=== PATIENT | male | born 1940 | race Caucasian/White ===

== ENCOUNTER 2022-11-28 06:34 | Emergency (ER) | payer MEDICARE, OTHER ==
--- NOTE | 2022-11-28 07:45 | ED Physician Documentation ---
PD HPI URI - Stated complaint Stated Complaint: C+, SOA - Chief complaint Chief Complaint: Resp - History obtained from History obtained from: Patient - History of Present Illness Timing - onset: How many days ago (4) Timing duration: Days (4) Timing details: Gradual onset, Still present Associated symptoms: Fever (3-4 days ago), Nasal congestion, Dry cough, Dyspnea. No: Sore throat, NVD Contributing factors: Sick contact. No: Immunocompromised, COPD / asthma Improves by: Rest Worsened by: Activity Similar symptoms before: Has not had sx before Recently seen: Not recently seen Review of Systems Constitutional: reports: Fever, Chills, Myalgias Nose: reports: Congestion Throat: denies: Sore throat Cardiac: denies: Chest pain / pressure Respiratory: reports: Dyspnea, Cough, Wheezing GI: denies: Abdominal Pain, Nausea, Vomiting, Diarrhea Neurologic: reports: Generalized weakness. denies: Near syncope PD PAST MEDICAL HISTORY - Past Medical History Past Medical History: Yes Cardiovascular: [place] Respiratory: None Neuro: None Endocrine/Autoimmune: None GI: GERD : None HEENT: Macular degeneration Psych: None Musculoskeletal: Osteoarthritis Other Past Medical History: multiple myeloma - Past Surgical History Past Surgical History: Yes Ortho: Shoulder arthroplasty, Arthroscopic surgery Cardiovascular: Coronary stent, Angioplasty - Present Medications Home Medications: Ambulatory Orders Medication Instructions Recorded Confirmed Acyclovir 400 mg PO BID 11/28/22 11/28/22 Albuterol Sulf [Ventolin Hfa 2 - 3 puffs INH QID #1 each 11/28/22 Inhaler] Aspirin EC [Ecotrin] 81 mg PO DAILY 11/28/22 11/28/22 Atorvastatin Calcium [Lipitor] 80 mg PO HS 11/28/22 11/28/22 Ferrous Sulfate [Slow Fe] 142 mg PO DAILY 11/28/22 11/28/22 Fluoxetine HCl [Prozac] 20 mg PO DAILY 11/28/22 11/28/22 Lenalidomide [Revlimid] 0 mg PO 11/28/22 Mv-Mn/Om3/Dha/Epa/Fish/Lut/John 1 each PO DAILY 11/28/22 11/28/22 [Ocuvite Adult 50 Plus Softgel] Omeprazole Magnesium 20 mg PO DAILY 11/28/22 11/28/22 Phosphorus [Phospha 250 Neutral] 250 mg ORAL BID 11/28/22 11/28/22 SULFAM/TRIM 800/160 Prepack 2 1 tab ORAL BID 11/28/22 11/28/22 [BACTRIM DS 800/160 Prepack 2] dexAMETHasone [Decadron] 3 tab PO Q7D 11/28/22 11/28/22 - Allergies Allergies/Adverse Reactions: Allergies Allergy/AdvReac Type Severity Reaction Status Date / Time Penicillins Allergy Rash Verified 11/28/22 06:41 - Social History Does the pt smoke?: No Smoking Status: Never smoker Does the pt drink ETOH?: Yes ETOH Use: Wine Does the pt have substance abuse?: No - Immunizations Immunizations are current?: Yes PD ED PE NORMAL - Vitals Vital signs reviewed: Yes - General General: Alert and oriented X 3, No acute distress, Well developed/nourished - Cardiac Cardiac: RRR, No murmur - Respiratory Respiratory: No respiratory distress. No: Clear bilaterally (wheezing diffusely. No coarse sounds. ) Results - Vitals Vitals: Vital Signs - 24 hr 11/28/22 11/28/22 11/28/22 06:44 08:20 08:44 Temperature 36.6 C Heart Rate 83 93 69 Respiratory 20 18 16 Rate Blood Pressure 166/78 H 161/80 H O2 Saturation 98 96 11/28/22 11/28/22 11/28/22 09:02 09:39 09:55 Temperature 36.9 C Heart Rate 92 68 88 Respiratory 20 18 18 Rate Blood Pressure 142/72 H 135/81 H O2 Saturation 97 100 Oxygen O2 Source Room air PD Medical Decision Making - ED course Complexity details: reviewed results, considered differential (COVID, with wheeezing. No history of asthma. Improved reasonably with albuterol neb. ), d/w patient Departure - Departure Disposition: 01 Home, Self Care Clinical Impression: COVID-19, Dyspnea, Wheezing Condition: Stable Record reviewed to determine appropriate education?: Yes Instructions: ED URI Viral W Wheezing Follow-Up: DARIO VU DO [Primary Care Provider] - Prescriptions: Albuterol Sulf [Ventolin Hfa Inhaler] 2 - 3 puffs INH QID #1 each Comments: Stay well-hydrated. Tylenol if needed for fevers or pains. Use the albuterol inhaler 2 to 3 puffs 4 times daily regularly for the next week and up to every 2 hours if needed for wheeziness as needed. Use your dexamethasone 6 mg orally tomorrow and then 4 mg daily for 2 more days and 2 mg daily for 2 more days. At that point you can do your normal dosing the following Tuesday. Return to the ER if you have increased trouble breathing/wheezing. Otherwise I would anticipate improvement in the next day or 2 with the above steroid dosing and inhaler. I sent your inhaler prescription to [facility] in [place]. Your chest x-ray is clear at this point without any signs of pneumonia. Your oxygenation is good at 97% on room air. Forms: PCP List Discharge Date/Time: 11/28/22 09:56
--- NOTE | 2022-11-28 08:09 | XRAY Report ---
PROCEDURE: Chest 2 View X-Ray INDICATIONS: SOA/cough TECHNIQUE: 2 views of the chest were acquired. COMPARISON: None. FINDINGS: Surgical changes and devices: None. Lungs and pleura: No pleural effusions or pneumothorax. Lungs are clear. Mediastinum: Mediastinal contours appear normal. Heart size is normal. Artifact is calcified, ind icating atherosclerosis. Bones and chest wall: No suspicious bony lesions. Overlying soft tissues appear unremarkable. IMPRESSION: No acute cardiopulmonary process. Reviewed by: Ramya Montalvo MD on 11/28/2022 8:08 AM PDT Approved by: Ramya Montalvo MD on 11/28/2022 8:08 AM PDT Station ID: [id number]
[2022-11-28] MEDS ORDERED: BENZONATATE 100 MG CAPSULE PO STA (08:12)
[2022-11-28] MEDS ORDERED: ALBUTEROL NEB 2.5 MG/3 ML INH STA (08:12)
[2022-11-28] MEDS ORDERED: dexAMETHasone 4 MG TABLET PO STA (09:12)
[2022-11-28] MEDS ORDERED: IPRATROPIUM/ALBUTEROL 3 ML NEB INH STA (09:12)
[2022-11-28 10:01] VITALS: BP 135/81; O2SAT 100
== END 2022-11-28 09:56 | disposition home or self-care (01) ==
LOC: ED 06:34
DX: U07.1 COVID-19 (principal); R06.2 Wheezing; R06.00 Dyspnea, unspecified; Z79.899 Other long term (current) drug therapy; Z79.82 Long term (current) use of aspirin
CPT/HCPCS: 71046; 94640; 99283; 99284; A9270; J8540

== ENCOUNTER 2023-07-01 12:11 | Emergency (ER) | payer MEDICARE, OTHER ==
[2023-07-01 12:44] LABS: BASOPHILS # (AUTO) 0.1 10^3/uL (0.0-0.1); EOSINOPHILS # (AUTO) 0.2 10^3/uL (0.0-0.7); HCT - HEMATOCRIT 37.3 % (42.0-52.0); LYMPHOCYTES # (AUTO) 5.2 10^3/uL (1.5-3.5); MEAN CORPUSCULAR HEMOGLOBIN 33.2 pg (27.0-31.0); MEAN CORPUSCULAR HGB CONC 32.2 g/dL (32.0-36.0); MEAN CORPUSCULAR VOLUME 103.3 fL (80.0-94.0); MEAN PLATELET VOLUME 10.3 fL (7.4-11.4); MONOCYTES # (AUTO) 1.6 10^3/uL (0.0-1.0); MONOCYTES % (AUTO) 13.9 %; NEUTROPHILS # (AUTO) 4.6 10^3/uL (1.5-6.6); NEUTROPHILS % (AUTO) 38.8 %; PLT - PLATELET COUNT 268 10^3/uL (130-450); RED BLOOD COUNT 3.61 10^6/uL (4.70-6.10); RED CELL DISTRIBUTION WIDTH 14.4 % (12.0-15.0); WHITE BLOOD COUNT 11.8 x10^3/uL (4.8-10.8)
[2023-07-01 12:48] LABS: SLIDE REVIEW? Indicated
[2023-07-01 12:58] LABS: ALBUMIN 3.7 g/dL (3.2-5.5); ALBUMIN/GLOBULIN RATIO 1.9 (1.0-2.2); BILIRUBIN,TOTAL 0.4 mg/dL (0.2-1.0); CALCIUM 9.7 mg/dL (8.5-10.3); CREATININE 1.3 mg/dL (0.6-1.3); TOTAL PROTEIN 5.6 g/dL (6.4-8.9)
[2023-07-01 12:59] LABS: PLATELET ESTIMATE, MANUAL NORMAL (130-450,000) (NORMAL); PLATELET MORPHOLOGY NORMAL APPEARANCE (NORMAL); RBC MORPHOLOGY (MULTIPLE) NORMAL APPEARANCE (NORMAL)
[2023-07-01 13:05] LABS: TROPONIN I HIGH SENSITIVITY 6.9 ng/L (2.3-19.7)
--- NOTE | 2023-07-01 13:47 | XRAY Report ---
PROCEDURE: Chest 1V INDICATIONS: Chest pain TECHNIQUE: One view of the chest was acquired. COMPARISON: 11/28/2022. FINDINGS: Surgical changes and devices: None. Lungs and pleura: No pleural effusions or pneumothorax. Lungs are clear. Mediastinum: Mediastinal contours appear normal. Heart size is normal. Bones and chest wall: No suspicious bony lesions. Overlying soft tissues appear unremarkable. IMPRESSION: No acute cardiopulmonary process. Reviewed by: Efe Trammell MD on 07/01/2023 1:45 PM PDT Approved by: Efe Trammell MD on 07/01/2023 1:45 PM PDT Station ID: [id number]
--- NOTE | 2023-07-01 13:52 | ED Physician Documentation ---
PD HPI CHEST PAIN - Stated complaint Stated Complaint: CHEST PX,SOA - Chief complaint Chief Complaint: Cardiac - History obtained from History obtained from: Patient - Additional information Additional information: 83-year-old gentleman with history of coronary disease with [address], had an [place] in 2001. He had 3 days of constant sharp chest pain located under the left clavicle. He had a cough a couple of weeks ago and wonders if this may be heartburn as he made some homemade chili. It has been unrelenting but not severe for the last 2 to 3 days. Not intermittent. Nonexertional. He denies pedal edema, calf pain. The cough is much worse than it was a couple of weeks ago and seems to be resolving. No fevers. PD PAST MEDICAL HISTORY - Past Medical History Past Medical History: Yes Cardiovascular: [place] Respiratory: None Neuro: None Endocrine/Autoimmune: None GI: GERD : None HEENT: Macular degeneration Psych: None Musculoskeletal: Osteoarthritis - Past Surgical History Past Surgical History: Yes Ortho: Shoulder arthroplasty, Arthroscopic surgery Cardiovascular: Coronary stent, Angioplasty - Present Medications Home Medications: Ambulatory Orders Medication Instructions Recorded Confirmed Acyclovir 400 mg PO BID 11/28/22 11/28/22 Albuterol Sulf [Ventolin Hfa 2 - 3 puffs INH QID #1 each 11/28/22 Inhaler] Aspirin EC [Ecotrin] 81 mg PO DAILY 11/28/22 11/28/22 Atorvastatin Calcium [Lipitor] 80 mg PO HS 11/28/22 11/28/22 Ferrous Sulfate [Slow Fe] 142 mg PO DAILY 11/28/22 11/28/22 Fluoxetine HCl [Prozac] 20 mg PO DAILY 11/28/22 11/28/22 Lenalidomide [Revlimid] 0 mg PO 11/28/22 Mv-Mn/Om3/Dha/Epa/Fish/Lut/John 1 each PO DAILY 11/28/22 11/28/22 [Ocuvite Adult 50 Plus Softgel] Omeprazole Magnesium 20 mg PO DAILY 11/28/22 11/28/22 Phosphorus [Phospha 250 Neutral] 250 mg ORAL BID 11/28/22 11/28/22 SULFAM/TRIM 800/160 Prepack 2 1 tab ORAL BID 11/28/22 11/28/22 [BACTRIM DS 800/160 Prepack 2] dexAMETHasone [Decadron] 3 tab PO Q7D 11/28/22 11/28/22 - Allergies Allergies/Adverse Reactions: Allergies Allergy/AdvReac Type Severity Reaction Status Date / Time Penicillins Allergy Rash Verified 07/01/23 12:15 - Social History Does the pt smoke?: No Smoking Status: Never smoker Does the pt drink ETOH?: Yes Does the pt have substance abuse?: No - Immunizations Immunizations are current?: Yes PD ED PE NORMAL - Vitals Vital signs reviewed: Yes - General General: Alert and oriented X 3, No acute distress - HEENT HEENT: PERRL, EOMI - Neck Neck: Supple, no meningeal sign, No bony TTP - Cardiac Cardiac: RRR, No murmur - Respiratory Respiratory: No respiratory distress, Clear bilaterally - Abdomen Abdomen: Non tender - Extremities Extremities: No edema, No calf tenderness / cord - Neuro Neuro: Alert and oriented X 3, Normal speech Results - Vitals Vitals: Vital Signs - 24 hr 07/01/23 12:15 Temperature 36.8 C Heart Rate 78 Respiratory 16 Rate Blood Pressure 130/53 L O2 Saturation 97 Oxygen O2 Source Room air - EKG (time done) 1221 EKG releavant findings:: EKG personally interpreted by author of this note. Relevant findings are: Rate: Rate (enter#) (74) Rhythm: NSR (w pac) [place]: Normal Intervals: Normal [place] QRS: Normal Ischemia: Normal ST segments - Labs Labs: Laboratory Tests 07/01/23 07/01/23 12:39 12:39 WBC 11.8 H RBC 3.61 L Hgb 12.0 L Hct 37.3 L MCV 103.3 H MCH 33.2 H MCHC 32.2 RDW 14.4 Plt Count 268 MPV 10.3 Neut # (Auto) 4.6 Lymph # (Auto) 5.2 H [place] # (Auto) 1.6 H Eos # (Auto) 0.2 Baso # (Auto) 0.1 Absolute Nucleated RBC 0.00 Nucleated RBC % 0.0 Manual Slide Review Indicated WBC Morphology Platelet Estimate NORMAL (130-450,000) Platelet Morphology NORMAL APPEARANCE RBC Morph Micro Appear NORMAL APPEARANCE Sodium 136 Potassium 4.0 Chloride 105 Carbon Dioxide 27 Anion Gap 4.0 L BUN 37 H Creatinine 1.3 Estimated GFR (MDRD) 53 L Glucose 150 H Calcium 9.7 Total Bilirubin 0.4 AST 15 ALT 21 Alkaline Phosphatase 97 Troponin I High Sens 6.9 Total Protein 5.6 L Albumin 3.7 Globulin 1.9 L Albumin/Globulin Ratio 1.9 Lipase 57 - Rads (name of study) 1v cxr Relevant Findings:: Final report received, EMP independent interpretation of test PD Medical Decision Making - ED course ED course: 83-year-old gentleman with coronary disease but with atypical 3 days worth of chest pain that is been constant with negative biomarkers and nonischemic EKG. He has a CBC with mild leukocytosis and anemia. He is under treatment for multiple myeloma so that probably explains that. CMP unremarkable save for mild prerenal azotemia. Chest x-ray unremarkable.. Departure - Departure Disposition: Home, Self Care Clinical Impression: Chest pain Qualifiers: Chest pain type: unspecified Qualified Code(s): R07.9 - Chest pain, unspecified Condition: Good Record reviewed to determine appropriate education?: Yes Instructions: ED Chest Pain Atypical Unkn Cause Comments: No indication that today's chest pain is from a worrisome cause such as heart attack. Call your doctor to arrange a follow-up appointment, make the next available appointment. In the interim, return anytime if worse or if new symptoms develop.
[2023-07-01 14:09] VITALS: BP 137/73; O2SAT 100
== END 2023-07-01 14:04 | disposition home or self-care (01) ==
LOC: ED 12:11
DX: R07.9 Chest pain, unspecified (principal); Z86.74 Personal history of sudden cardiac arrest; Z95.5 Presence of coronary angioplasty implant and graft
CPT/HCPCS: 36415; 80053; 83690; 84484; 85025; 93005; 99283; 99284